=== PATIENT | male | born 1940 | race Hispanic/Latino ===

== ENCOUNTER 2020-09-13 11:47 | Day surgery (SDC) | payer MEDICARE ==
[2020-09-12 14:43] VITALS: BP 116/75
[~2020-09-13] VITALS: Ht 177.8 cm; Wt 87.5 kg
[~2020-09-13 11:47] MED LIST: AMIODARONE PO; CALCITONIN SPRAY NASAL; CARV6.25 PO; LACTATED RINGERS 1000ML 1,000 ML IV ONE; LIDOCAINE PATCH 5% TP; MIRA50TA PO; NITR100C9 PO; SACU1TAB PO; SILO8CAP6 PO; TRAM50TA4 PO
[2020-09-13 12:00] VITALS: BP 150/78
[2020-09-13] MEDS ORDERED: LIDOCAINE HCL MPF 1% 5ML VIAL ONE ×2 (12:20→12:24)
[2020-09-13] MEDS ORDERED: DEXAMETHASONE SOD PHOSPHATE 4 MG/ML 1ML VIAL ONE ×2 (12:21→13:03)
[2020-09-13] MEDS ORDERED: BUPIVACAINE/PF 0.5% 10ML VIAL ONE (12:25)
[2020-09-13] MEDS ORDERED: ISOVUE-M 200 20 ML VIAL IT ONE (13:01)
[2020-09-13 13:55] VITALS: BP 151/75
[2020-09-13 14:10] VITALS: BP 132/73
[2020-09-13 14:25] VITALS: BP 135/78
== END 2020-09-13 14:35 | disposition home or self-care (01) ==
LOC: DAH 11:47
PROVIDERS: ATTEND Family Medicine Sports Medicine
DX: M51.86 Other intervertebral disc disorders, lumbar region (principal); Z20.828 Contact with and (suspected) exposure to other viral communicable diseases; G89.29 Other chronic pain; M47.816 Spondylosis without myelopathy or radiculopathy, lumbar region; M46.1 Sacroiliitis, not elsewhere classified; S32.050A Wedge compression fracture of fifth lumbar vertebra, initial encounter for closed fracture; X58.XXXA Exposure to other specified factors, initial encounter; Z79.899 Other long term (current) drug therapy
CPT/HCPCS: 62323; 72220; A4215 ×2; A4221; A4222; A4223; A4657; A4663; A6260; C9803; J1100 ×2; J3490; J7120; Q9966; U0003; 62320

== ENCOUNTER 2020-10-30 05:42 | Day surgery (SDC) | payer MEDICARE ==
[2020-10-25 11:32] LABS: BASOPHILS % (AUTO) 0.5 % (0.0-5.0); EOSINOPHILS % (AUTO) 4.2 % (0.0-8.0); HEMATOCRIT 42.8 % (42-54); LYMPHOCYTES % (AUTO) 16.2 % (21.0-51.0); MEAN CORPUSCULAR HEMOGLOBIN 32.5 pg (27.0-33.0); MEAN CORPUSCULAR HGB CONC 33.9 g/dL (32.0-36.0); MONOCYTES % (AUTO) 12.5 % (3.0-13.0); NEUTROPHILS % (AUTO) 66.4 % (40.0-77.0); PLATELET COUNT (AUTO) 230 K/uL (130-400); RED BLOOD CELL COUNT(AUTO) 4.46 MIL/uL (4.50-6.20); WHITE BLOOD COUNT (AUTO) 5.5 K/uL (4.8-10.8)
[2020-10-25 11:39] LABS: CREATININE 0.8 mg/dL (0.5-1.5); POTASSIUM 4.3 mmol/L (3.5-5.1)
[~2020-10-30 05:42] MED LIST changes: -LACTATED RINGERS 1000ML 1,000 ML IV ONE
[2020-10-30] MEDS ORDERED: ISOVUE-M 200 20 ML VIAL IT ONE (07:05)
[2020-10-30 07:55] VITALS: BP 158/77
[2020-10-30 08:11] VITALS: BP 163/80
[2020-10-30 08:30] VITALS: BP 155/81
[2020-10-30 08:45] VITALS: BP 158/76
[2020-10-30] MEDS ORDERED: KETOROLAC TROMETHAMINE 60 MG/2 ML VIAL ONE (08:59)
[2020-10-30 09:00] VITALS: BP 148/78
[2020-10-30] MEDS ORDERED: KETOROLAC TROMETHAMINE 15MG/ML IV SCH (09:00)
[2020-10-30 09:30] VITALS: BP 154/76
== END 2020-10-30 10:15 | disposition home or self-care (01) ==
LOC: DAH 05:42
PROVIDERS: ATTEND Neurological Surgery
DX: M54.16 Radiculopathy, lumbar region (principal); Z20.828 Contact with and (suspected) exposure to other viral communicable diseases; M80.88XA Other osteoporosis with current pathological fracture, vertebra(e), initial encounter for fracture; M41.9 Scoliosis, unspecified; Z79.899 Other long term (current) drug therapy; Z88.2 Allergy status to sulfonamides; Z95.0 Presence of cardiac pacemaker; Z98.890 Other specified postprocedural states
CPT/HCPCS: 36415; 62304; 72132; 80048; 85025; 93005; A4663; A6260; J1885 ×2; Q9966; U0003

== ENCOUNTER 2020-11-20 06:03 | Day surgery (SDC) | payer MEDICARE ==
[2020-11-15 14:30] LABS: BASOPHILS % (AUTO) 0.8 % (0.0-5.0); LYMPHOCYTES % (AUTO) 17.5 % (21.0-51.0); MEAN CORPUSCULAR HEMOGLOBIN 32.3 pg (27.0-33.0); MEAN CORPUSCULAR HGB CONC 34.2 g/dL (32.0-36.0); MEAN CORPUSCULAR VOLUME 94.3 fL (79-99); MONOCYTES % (AUTO) 10.2 % (3.0-13.0); NEUTROPHILS % (AUTO) 68.1 % (40.0-77.0); PLATELET COUNT (AUTO) 270 K/uL (130-400); RED BLOOD CELL COUNT(AUTO) 4.77 MIL/uL (4.50-6.20); RED CELL DISTRIBUTION WIDTH 13.1 % (11.0-15.5); WHITE BLOOD COUNT (AUTO) 5.1 K/uL (4.8-10.8)
[2020-11-15 14:38] LABS: CREATININE 0.7 mg/dL (0.5-1.5); POTASSIUM 4.4 mmol/L (3.5-5.1)
[2020-11-19 09:21] VITALS: BP 176/91
[~2020-11-20] VITALS: Ht 177.8 cm; Wt 88.5 kg
[2020-11-20] VITALS (15 sets, daily range): BP systolic 96–153; BP diastolic 47–97
[~2020-11-20 06:03] MED LIST changes: +BETH25 PO; -CALCITONIN SPRAY NASAL; +CETI10CA5 PO; +GABA300C PO; -LIDOCAINE PATCH 5% TP; +SERT-439 PO; -SILO8CAP6 PO; -TRAM50TA4 PO
[2020-11-20 06:42] LABS: CREATININE 0.8 mg/dL (0.5-1.5); POTASSIUM 4.7 mmol/L (3.5-5.1)
[2020-11-20] MEDS ORDERED: SODIUM CHLORIDE 0.9% 1000ML 1,000 ML IV ONE (08:12)
[2020-11-20] MEDS: CEFAZOLIN SODIUM 1 GM VIAL IVP ONE ×2 (08:16→09:55)
[2020-11-20] MEDS ORDERED: SODIUM CHLORIDE 0.9% 1000ML 1,000 ML IV SCH (08:45)
[2020-11-20] MEDS ORDERED: MIDAZOLAM HCL 1 MG/ML 2ML VIAL ONE (09:18)
[2020-11-20] MEDS ORDERED: FENTANYL CITRATE PF 50 MCG/1 ML 2ML VIAL ONE ×2 (09:18→10:40)
[2020-11-20] MEDS ORDERED: LIDOCAINE HCL 1% 20 ML VIAL ONE ×2 (09:54→10:47)
== END 2020-11-20 14:25 | disposition home or self-care (01) ==
LOC: DAH 06:03
PROVIDERS: ATTEND Neurological Surgery
DX: M80.88XA Other osteoporosis with current pathological fracture, vertebra(e), initial encounter for fracture (principal); M19.90 Unspecified osteoarthritis, unspecified site; E11.9 Type 2 diabetes mellitus without complications; I45.10 Unspecified right bundle-branch block; Z88.2 Allergy status to sulfonamides; Z79.899 Other long term (current) drug therapy; Z20.828 Contact with and (suspected) exposure to other viral communicable diseases
CPT/HCPCS: 22511; 36415 ×2; 72110; 80048 ×2; 82948; 85025; 93005; A4215 ×2; A4221; A4222; A4223; A4663; A6260; C1776; C9803; J0690; J2250; J3010 ×2; J7030; U0003